=== PATIENT | female | born 1985 | race Caucasian/White ===

== ENCOUNTER 2017-11-26 05:58 | Outpatient (CLI) | payer BC ==
[~2017-11-26] VITALS: Ht 157.5 cm; Wt 90.9 kg
[~2017-11-26 05:58] MED LIST: PRENATAL1 TA1 PO
[2017-11-26 06:21] VITALS: BP 155/75; PULSE 109; TEMP 99
[2017-11-26 06:30] VITALS: BP 134/78; PULSE 99; TEMP 99
[2017-11-26] MEDS ORDERED: ZYRTEC 10MG10 MG PO (06:34)
[2017-11-26] MEDS ORDERED: ZANTAC 7575 MG PO (06:35)
[2017-11-26 07:00] VITALS: BP 127/75; PULSE 110
[2017-11-26 07:27] VITALS: BP 111/74; PULSE 99
[2017-11-29] MEDS ORDERED: PERCOCET 325 MG1 TA2 PO (05:24)
[2017-11-29] MEDS ORDERED: MOTRIN 600600 MG/TAB PO (05:24)
== END 2017-11-26 07:45 | disposition home or self-care (01) ==
LOC: LDRO 05:58 → LDR 06:10 → LDRO 07:45
DX: O62.9 Abnormality of forces of labor, unspecified (principal); Z3A.39 39 weeks gestation of pregnancy
CPT/HCPCS: OP